=== PATIENT | male | born 2000 | race Caucasian/White ===

== ENCOUNTER 2020-07-18 18:34 | Emergency (ER) | payer MEDICAID ==
[2020-07-18] MEDS ORDERED: DIPH/PERTUSS(ACELL)/TETANUS VAC/PF 0.5 ML SYR (>=10YO) IM ONE (18:41)
[2020-07-18] MEDS ORDERED: HYDROCODONE/ACETAMINOPHEN 5-325 MG TABLET PO ONE (18:41)
--- NOTE | 2020-07-18 18:44 | ER Document Report ---
ED Medical Screen (RME) - General Chief Complaint: Finger Injury Stated Complaint: FINGER INJURY Time Seen by Provider: 07/18/20 18:37 Primary Care Provider: RAYMOND BARRETT MD [Primary Care Provider] - Follow up as needed Notes: Patient is a 19-year-old male presents emergency department with left index finger pain. 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 He is unsure as to when his last tetanus shot was. Is able to flex his left second digit. Patient is right-handed. Exam: Finger laceration noted to left index finger. I have greeted and performed a rapid initial assessment of this patient. A co mprehensive ED assessment and evaluation of the patient, analysis of test results and completion of medical decision making process will be conducted by an additional ED providers. Doctor's Discharge - Discharge Referrals: RAYMOND BARRETT MD [Primary Care Provider] - Follow up as needed
--- NOTE | 2020-07-18 19:25 | RADIOLOGY REPORT (SQ) ---
EXAM DESCRIPTION: FINGER LEFT IMAGES COMPLETED DATE/TIME: 07/18/2020 6:55 pm REASON FOR STUDY: left finger laceration COMPARISON: None. EXAM PARAMETERS: NUMBER OF VIEWS: Three views. TECHNIQUE: AP, lateral and oblique radiographic images acquired of the left hand. LIMITATIONS: None. FINDINGS: MINERALIZATION: Normal. BONES: No acute fracture or dislocation. No worrisome bone lesions. JOINTS: No effusion. SOFT TISSUES: 2nd digit soft tissue swelling. No radiopaque foreign body. OTHER: No other significant finding. IMPRESSION: NO FRACTURE. TECHNICAL DOCUMENTATION: JOB ID: [id number] [place]-[id number] 2010 [email or web address]- All Rights Reserved Reading location - IP/workstation name: [employer]
[2020-07-18] MEDS ORDERED: LIDOCAINE 1% INJ-PF (10 MG/ML) 30 ML SDV INJ ONE (21:31)
--- NOTE | 2020-07-18 21:32 | ER Document Report ---
ED Wound - General Chief Complaint: Laceration Stated Complaint: FINGER INJURY Time Seen by Provider: 07/18/20 18:37 Primary Care Provider: RAYMOND BARRETT MD [Primary Care Provider] - Follow up as needed Mode of Arrival: Ambulatory Information source: Patient Notes: 19-year-old male with no previous medical problems presents to the emergency room with a laceration to his left index finger. Patient states she was trimming hedges with a hedge tremor when he cut the tip of his left index finger. Bleeding is persistent. Unknown last tetanus shot. Patient is right-h anded. State happened around 4 PM. No meds prior to arrival. TRAVEL OUTSIDE OF THE [place] IN LAST 30 DAYS: No - Related Data Allergies/Adverse Reactions: No Known Allergies Allergy (Unverified 07/18/20 18:44) Past Medical History - General Information source: Patient - Social History Smoking Status: Current Every Day Smoker Chew tobacco use (# tins/day): No Frequency of alcohol use: Occasional Drug Abuse: None Family History: Reviewed & Not Pertinent Review of Systems - Review of Systems Constitutional: No symptoms reported Cardiovascular: No symptoms reported Respiratory: No symptoms reported Musculoskeletal: Other - Of finger injury Skin: Other - Laceration Neurological/Psychological: No symptoms reported -: Yes All other systems reviewed and negative Physical Exam - Vital signs Vitals: Temp Pulse Resp BP Pulse Ox 98.0 F 113 H 20 186/112 H 98 07/18/20 18:44 07/18/20 18:44 07/18/20 18:44 07/18/20 18:44 07/18/20 18:44 - General General appearance: Appears well, Alert In distress: Moderate - Respiratory Respiratory status: No respiratory distress Chest status: Nontender Breath sounds: Normal Chest palpation: Normal - Cardiovascular Rhythm: Tachycardia Heart sounds: Normal auscultation Murmur: No - Extremities Wrist: Tender - Tenderness on palpation to the distal aspect of the left index finger. No obvious deformity noted. Full range of motion with flexion extension., Laceration - 5 cm laceration noted to the distal aspect of the left index finger. - Neurological Neuro grossly intact: Yes Cognition: Normal Orientation: AAOx4 Annette Coma Scale Eye Opening: Spontaneous [place] Coma Scale Verbal: Oriented Annette Coma Scale Motor: Obeys Commands Annette Coma Scale Total: 15 Speech: Normal Motor strength normal: LUE, RUE, LLE, RLE Sensory: Normal Notes: Positive left radial pulse. Capillary refill less than 3 seconds. Able to fully extend and flex left index finger without difficulty. Patient is neurovascularly intact. - Skin Skin Temperature: Warm Skin Moisture: Dry Skin Color: Erythema Skin irregularity: Laceration - Patient with a 5 cm vertical laceration, no tendon injury noted. Contused tissue noted. Bleeding is persistent. Location of irregularity: Extremities Irregularity with: Tenderness Course - Re-evaluation Re-evalutation: 07/18/20 22:46 X-ray results were reviewed with patient and family. Wound was cleansed and sutured as documented. No tendon injury noted. Neurovascularly intact. Tetanus updated. IM Rocephin given. Patient was counseled on proper wound care. Antibiotics as prescribed. Sutures out 8 to 10 days. Also discussed patient's elevated blood pressure. Patient has no history of hypertension. Recommend outpatient follow-up with his primary care physician for monitoring of his blood pressure. E force reviewed. Okay for narcotic prescription patient will be discharged home with #6 Stover for pain control along with Keflex. Patient was given strict return to the emergency room guidelines. Return for a ny new or worsening symptoms. All questions were answered. Patient verbalized understanding and agrees with plan of care. 07/19/20 01:29 07/19/20 01:30 - Vital Signs Vital signs: Temp Pulse Resp BP Pulse Ox 98.0 F 98 20 152/93 H 97 07/19/20 00:00 07/19/20 00:00 07/19/20 00:00 07/19/20 00:00 07/19/20 00:00 - Diagnostic Test Radiology reviewed: Reports reviewed Procedures - Laceration/Wound Repair Left 2nd digit Time completed: 22:44 Wound length (cm): 5 Wound's Depth, Shape: Linear, Irregular, Contused tissue Laceration pre-procedure: Sterile PPE donned, Sterile drapes applied, Shur-Clens applied Anesthetic type: 1% Lidocaine Volume Anesthetic (mLs): 4 - digital block Wound explored: Clean, No foreign body removed Irrigated w/ Saline (mLs): 50 Wound Repaired With: Sutures Suture Size/Type: 4:0, Ethilon Number of Sutures: 9 Layer Closure?: No Post-procedure wound care: Sterile dressing applied Post-procedure NV exam normal: Yes Complications: No Notes: 07/19/20 01:34 Patient with a moderate amount of contused tissue extending outside of the tip of the left index finger about laceration. ED attending Dr. Dill examined finger. Stable to be sutured and provider was able to get the contused tissue under the suture repair. Hands front picture: 1 - avulsed tissue with laceration 5 cm Discharge - Discharge Clinical Impression: Elevated blood-pressure reading without diagnosis of hypertension Laceration of left index finger w/o foreign body w/o damage to nail Qualifiers: Encounter type: initial encounter Qualified Code(s): S61.211A - Laceration wit hout foreign body of left index finger without damage to nail, initial encounter Condition: Stable Disposition: HOME, SELF-CARE Instructions: Laceration Care ([facility]), Prophylactic Antibiotic ([facility]), Tetanus Immunization Given ([facility]) Additional Instructions: Keep wound clean and dry. Can remove dressing in 24 hours. Sutures out 8 to 10 days. Antibiotics as prescribed. Return to the emergency room for any new or worsening symptoms. Prescriptions: Cephalexin Monohydrate [Keflex 500 mg Capsule] 500 mg PO Q6H 10 Days #40 capsule Forms: Elevated Blood Pressure Referrals: RAYMOND BARRETT MD [Primary Care Provider] - Follow up as needed
[2020-07-18] MEDS ORDERED: CEFTRIAXONE INJ 1000 MG VIAL IM ONE (22:43)
[2020-07-18] MEDS ORDERED: LIDOCAINE 1% INJ-PF (10 MG/ML) 30 ML SDV NEB ONE (22:43)
[2020-07-18] MEDS ORDERED: HYDROCODONE/ACETAMINOPHEN 5-325 MG (6 TAB/ER DISP) PO PRN (23:30)
[2020-07-19 00:09] VITALS: BP 152/93
== END 2020-07-19 00:11 | disposition home or self-care (01) ==
LOC: ER 18:34
DX: S61.211A Laceration without foreign body of left index finger without damage to nail, initial encounter (principal); W29.3XXA Contact with powered garden and outdoor hand tools and machinery, initial encounter; Y93.H2 Activity, gardening and landscaping; R03.0 Elevated blood-pressure reading, without diagnosis of hypertension; F17.200 Nicotine dependence, unspecified, uncomplicated; Z23 Encounter for immunization
CPT/HCPCS: 99284; 96372; 90471; 73140; 90715; 12002; J3490; J0696